=== PATIENT | male | born 1970 | race Caucasian/White ===

== ENCOUNTER 2021-12-22 11:10 | Emergency (ER) | payer BC, SELFPAY ==
[2021-12-22 11:17] VITALS: BP 131/98; PULSE 84; RESP 16; TEMP 37.1; O2SAT 98; BMI 31.1
[2021-12-22 12:24] VITALS: BP 0/0; PULSE 0; RESP 0; TEMP -17.7; TEMP 0
== END 2021-12-22 12:26 | disposition left against medical advice (07) ==
PROVIDERS: Emergency Provider Nurse Practitioner Family
DX: Z53.21 Procedure and treatment not carried out due to patient leaving prior to being seen by health care provider (principal)

== ENCOUNTER 2021-12-22 16:21 | Emergency (ER) | payer BC, SELFPAY ==
[2021-12-22 16:35] VITALS: BP 143/82; PULSE 83; RESP 14; TEMP 36.6; O2SAT 98; BMI 31.1
--- NOTE | 2021-12-22 16:57 | HMH.EDUTC ---
[facility] [place] Clinical Impression: Laceration of right leg excluding thigh Qualifiers: Encounter type: initial encounter Qualified Code(s): S81.811A - Laceration without foreign body, right lower leg, initial encounter Disposition: Home, Self-Care Condition on Discharge: Good Instructions: How to Care for a Laceration After Repair, DI for Laceration Repair -- Complex Suture Additional Instructions: Keep the wound clean and dry. Keep a dressing on it if she is going to be getting it dirty. Watch the for signs of infection, such as redness, swelling, drainage, fever. etc. Give tylenol or ibuprofen for pain. Follow up with her regular doctor. Return in 12 days to have the sutures removed. GO TO THE ER FOR ANY WORSENING SYMPTOMS OR CONCERNS. Take the antibiotics at directed. Prescriptions: cephALEXin [cephALEXin 500mg capsule] 500 mg PO Q6H 10 Days #40 cap Transmission Status: Received by [facility] #[id number] Referrals: Provider,Referral, [Primary Care Provider] - Time of Disposition: 19:45 Medical Decision Making - Medical Records Medical records reviewed: No: I reviewed the patient's medical records. - John Inquiry Pt receiving controlled substance: No Vital Signs: 12/22/21 16:35 12/22/21 19:50 Temperature 98 F 98 F Temperature Source Oral Pulse Rate 83 Pulse Rate [Left] 83 Respiratory Rate 14 14 Blood Pressure 143/82 H Blood Pressure [Right Arm] 143/82 H Blood Pressure Mean [Right Arm] 102 02 Sat by Pulse Oximetry 98 Orders (Tests/Meds): ED MEDICATIONS Discontinued Medications Generic Name Dose Route Start Last Admin Trade Name Nat PRN Reason Stop Dose Admin Lidocaine HCl 4 ml 12/22/21 19:49 12/22/21 19:50 Lidocaine 1% Pf 2ml Ampule SQ 12/22/21 19:50 4 ml ONCE ONE Administration [facility] [place] H[place] - General Stated complaint: O/A 3/ @1015 laceration to L thigh Time Seen by Provider: 12/22/21 16:57 Mode of Arrival: Ambulatory Source of Information: Patient Limitations: No Limitations Description of Symptoms (Recalled from Triage Doc. by RN): pt caught his L upper thigh in nona wire this am. pt has a lac close to 4in long that is bleeding minimally. pt was here earlier this am and LWBS. pt returned with steri strips all the way accross the lac. HEENT Symptoms (Recalled from RN notes): No Resp Symptoms (Recalled from RN notes): No Skin Symptoms (Recalled from RN notes): Yes MS Symptoms (Recalled from RN notes): No Functional Status (Recalled from RN notes): wnl - History of Present Illness Provider Complaint: He was chasing his dog when he ran in to a nona wire fence. He has a laceration on his left upper leg. His tetanus immunization is up to date. - Related Data Previous Rx's Medication Instructions Recorded Amoxicillin/Potassium Clav 500 mg PO TID #21 tab 12/24/19 [Augmentin 500mg tab] cephALEXin [cephALEXin 500mg 500 mg PO Q6H 10 Days #40 cap 12/22/21 capsule] Allergies Allergy/AdvReac Type Severity Reaction Status Date / Time No Known Allergies Allergy Verified 12/24/19 13:49 - Worker's Comp Is this a Worker's Comp case?: No [facility] History - Hepatitis A Screen Drug use history?: No High risk sexual behaviors?: No History of sexually transmitted infection?: No Currently employed?: No Childcare worker?: No Do you have indoor plumbing?: Yes Do you have electricity?: Yes Attestation statement:: This patient has been screened for Hepatitis A risk factors. I have reviewed the patient's past medical history: Yes Laterality Cases: Left: Arthroscopy Shoulder - Social History Alcohol Intake: current Occupational Status: other ROS Obtained: Yes All systems reviewed & no additional complaints - Constitutional Constitutional: Denies chills, Denies fever(s) - Integumentary/Breasts Skin/Breast: Reports as per HPI - Neurologic Neurologic: Denies tingling/numbness/burning sensations Physical Ex
[2021-12-22 19:50] VITALS: BP 143/82; PULSE 83; RESP 14; TEMP 36.6
== END 2021-12-22 19:51 | disposition home or self-care (01) ==
PROVIDERS: Emergency Provider Nurse Practitioner Family
DX: S81.811A Laceration without foreign body, right lower leg, initial encounter (principal); W26.8XXA Contact with other sharp object(s), not elsewhere classified, initial encounter; Y92.89 Other specified places as the place of occurrence of the external cause
CPT/HCPCS: 12002; 99213; G0463

== ENCOUNTER 2025-07-10 10:45 | Outpatient (CLI) | payer OTHER, SELFPAY ==
--- OUTSIDE RECORDS SUMMARY | 2023-08-16 11:00 | XMS_ITS | Continuity of Care Document ---
Author Organization [facility] o Address [address] [place] [address] Phone Care Team Providers Care Branch Account Manager Name Role Phone Robert Bello MD Unavailable Unavailable Medications Medication Instructions Dosage Effective Dates (start - stop) Status Comments Medrol (Ambrocio) 4 mg tablets in a dose pack take by Oral route take as directed as needed Not Available - Active Procedures Procedure Date X-ray exam of shoulder, complete 2022 Njx interlaminar lmbr/sac Methylprednisolone 40 MG inj MRI Lumbar Spine wo Contrast DESTROY LUMB/SAC FACET JNT DESTROY L/S FACET JNT ADDL Methylprednisolone 40 MG inj Office/outpatient visit,est, mod 2016 DESTROY LUMB/SAC FACET JNT DESTROY L/S FACET JNT ADDL Methylprednisolone 40 MG inj Office consultation, moderate-high INJ PARAVERT F JNT L/S 1 LEV INJ PARAVERT F JNT L/S 2 LEV INJ PARAVERT F JNT L/S 3 LEV Methylprednisolone 40 MG inj Office consultation, moderate 4 X-ray exam lwr spine, min 4 views Advance Directives Directive Yes / No Effective Date File Name No Information Encounters Encounter Description Practice Location Reason(s) For Visit Diagnoses Date Provider Providers Copied on Encounter [facility] [place], [place], [facility], [place] tel:[phone] [facility] No Information 5- 3 Ace Jones. [address], [place], [place], [id number], . tel:[phone] Referring Provider: Robert Gusman, [address], [place], [address]. tel:[phone] [facility] [place], [facility] [place], [place], [facility], [place] tel:[phone] [facility] No Information Jan-2 8-201 7 Maricarmen Hernández. [address] [place], [place], [id number], [place]. tel:[phone] [facility] [address], [facility], [place] tel:[phone] [facility] No Information Jan-0 3-201 7 Maricarmen Hernández. [address] [place], [place], [id number], [place]. tel:[phone] Referring Provider: Edgar Hernadez, [address] [place], [address]. tel:[phone] [facility] [address], [facility], [place] tel:[phone] [facility] No Information Dec-2 4-201 7 Maricarmen Hernández. [address] [place], [place], [id number], [place]. tel:[phone] Office/outpa tient visit,est, mod [facility] [address], [facility], [place] tel:[phone] [facility] No Information Dec-1 7-201 7 Maricarmen Hernández. [address] [place], [id number], [place]. tel:[phone] [facility] [address] [place], [address], tel:[phone] [facility] Lumbosacral spondylosis 0201 4 Maricarmen Hernández. [address] [place], [place], [id number], . tel:[phone] Office consultation , moderate-hig h [facility] [place], [facility] [place], [place], [facility], tel:[phone] [facility] No Information 4 Maricarmen Hernández. [address] [place], [place], [id number], [place]. tel:[phone] Referring Provider: Kenrick Rivas, [address] [place] [address], [address]. tel:[phone] Office consultation , moderate [facility] [place], [address] [place] [address], [facility], tel:[phone] [facility] No Information 4 Júnior Choudhary. [address] [place] [address], [id number], [place]. tel:[phone] Referring Provider: Kvng Butt, [address] [place] [address], [place], [address]. tel:[phone] Family History Family Member Type Diagnosis Age At Onset No Information Payers Payer name Insurance type Covered republican ID Gerri lyle(s) [place] - [id number] Social History Type Description Quantity Date Captured Comments Sex Male Smoking Status No Information Chief Complaint And Reason For Visit No Information Reason For Referral Reason For Referral No Information Plan Of Treatment Date Type Action Status Future Order: Radiology Order MR I Lumbar Spine WO Contrast ([id number]), Sent on: Sent History Of Present Illness Encounter Date Complaint History Of Prese nt Illness No Information Functional Status Date Functional Assessmen t No Information Instructions Date Instruction Additional Infor mation No Information Assessments Type Assessment Date No Information Patient Care Teams Name Effective Dates (start - stop) Status Members No Information
[2025-07-10 16:13] LABS: Albumin Level 4.5 g/dl (3.5-5.0); Chloride 103 mmol/L (98-107); Potassium 4.1 mmoL/L (3.5-5.1); Sodium 138 mmol/L (136-145)
[2025-07-10 16:15] LABS: Blood Urea Nitrogen 9 mg/dl (9-20); Creatinine,Serum 0.70 mg/dl (0.66-1.25); Estimated Glomerular Filt Rate 116 ml/min (>60); GFR (African American) 141 ML/MIN (>60)
[2025-07-10 16:16] LABS: Alanine Aminotransferase 23 U/L (12-78); Albumin/Globulin Ratio 1.8 (1.1-1.8); Alkaline Phosphatase 78 U/L (38-126); Anion Gap 14.1 mEq/L (5-15); Aspartate Amino Transferase 29 U/L (17-59); Bilirubin,Total 0.6 mg/dl (0.2-1.3); Calcium 9.6 mg/dl (8.4-10.2); Carbon Dioxide 25 mmol/L (22.0-30.0); Globulin 2.5 g/dL (1.3-3.2); Glucose 95 mg/dl (74-100); Total Protein,Serum 7.0 g/dl (6.3-8.2)
--- OUTSIDE RECORDS SUMMARY | 2025-07-11 12:25 | XMS_ITS | Encounter Summary ---
Author Organization [place] [address] Care Team Providers Care Railway Switchman Name Role Phone Vijaya Coker MD Primary Care Provider [phone],LD Unavailable Unavailabl e Yesy Franco LPN Unavailable Unav ailable Cassandra Grimes RD,LD Unavailable Unavailabl e Encounter Details Date Type Department Care Team (Late st Contact Info) Description 07/09/2019 Lab Requisition [facility] [place] [address] Isaura Mckinney MD [address] [place] [address] DR OTERO [address] [place] [phone] Disruption of external operation (surgical) wound, not elsewhere classified, initial encounter Social History Tobacco Use Types Packs/Day Years Used Date Smoking Tobacco: Former Cigarettes 1.5 20 1 10/28/1986 - 08/28/2007 Smokeless Tobacco: Former Chew Comments:quit 09/23/2018 Alcohol Use Standard Drinks/Week Comments Yes 6 (1 standard drink = 0.6 oz pur e alcohol) per week PHQ-2 Answer Date Recorded PHQ-2 Score 0 03/15/2019 Sexually Active Control Partners Comments Yes Sex and Gender Information Value Date Recorded Sex Assigned at Not on file Legal Sex Male 5:23 PM EDT Gender Identity Not on file Sexual Orientation Not on file 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 Answer Date of Assessment Author No 08/28/2017 4:51 PM Kaylan Pedraza CCMA * Is the person blind or does he/she have serious difficulty seeing even when wearing glasses? Answer Date of Assessment Author No 08/28/2017 4:51 PM Kaylan Pedraza CCMA * Does this person have serious difficulty walking or climbing stairs? Answer Date of Assessment Author No 08/28/2017 4:51 PM Kaylan Pedraza CCMA * Does this person have difficulty dressing or bathing? Answer Date of Assessment Author No 08/28/2017 4:51 PM Kaylan Pedraza CCMA * Because of a physical, mental or emotional condition, does this person have difficulty doing errands alone such as visiting a doctor's office or shopping? Answer Date of Assessment Author No 08/28/2017 4:51 PM Kaylan Pedraza CCMA documented as of this encounter Mental Status * Because of a physical, mental or emotional condition, does this person have serious difficulty concentrating, remembering or making decisions? Answer Entry Date Author No 08/28/2017 4:51 PM Kaylan Pedraza CCMA documented in this encounter Plan of Treatment Upcoming Encounters Date Type Department Care Team (Late st Contact Info) Description 09/23/2026 10:00 AM EST Office Visit [facility] [address] [phone] Kaylan Degroot APRN [address] [address] documented as of this encounter Goals Goal Patient Goal Type Associated Problems Recent Progress Patient-Stated? Author Blood Pressure < 140/90 Blood Pressure 120/80(2024 9:20 AM EST) No Vijaya Coker MD Maintain a healthy diet, exercise regularly and maintain an ideal body weight General No Marilu Nava CCMA Stay Tobacco Free Lifestyle No Marilu Nava CCMA documented as of this encounter Procedures Procedure Name Priority Date/Time Associated Diagnosis Comments SEDIMENTATION RATE AUTOMATED Routine 07/09/2019 11:00 AM EDT Disruption of external operation (surgical) wound, not elsewhere classified, initial encounter CBC WITH DIFF Routine 07/09/2019 11:00 AM EDT Disruption of external operation (surgical) wound, not elsewhere classified, initial encounter C-REACTIVE PROTEIN Routine 07/09/2019 11 :00 AM EDT Disruption of external operation (surgical) wound, not elsewhere classified, initial encounter documented in this encounter Results * (ABNORMAL) C-REACTIVE PROTEIN (07/09/2019 11:00 AM EDT) CRP 6.01(H) <=5.00 mg/L 07/09/2019 6:06 PM EDT [employer] Blood VENOUS BLOOD / Unknown 07/09/2019 11:00 AM EDT 07/09/2019 4:06 PM EDT Isaura Mckinney MD CHEMISTRY ORDERABLES Fin al Result Performing Organization Address [facility] Co de Phone Number [employer] [address] [place] [address] , [place] [address] * (ABNORMAL) SEDIMENTATION RATE AUTOMATED (07/09/2019 11:00 AM EDT) Sed Rate 30(H) 0 - 20 mm/hr 07/09/2019 5:23 PM EDT [employer] Blood VENOUS BLOOD / Unknown 07/09/2019 11:00 AM EDT 07/09/2019 5:00 PM EDT Isaura Mckinney MD HEMATOLOGY ORDERABLES Fi nal Result Performing Organization Address [facility]/ZIP Co de Phone Number [id number] [address] , [place] [address] * (ABNORMAL) CBC WITH DIFF (07/09/2019 11:00 AM EDT) [facility] WBC 8.1 3.7 - 10.3 x10(3)/mcL 07/09/2019 5:11 PM EDT [facility] RBC 5.38 4.60 - 6.10 x10(6)/mcL 07/09/2019 5:11 PM EDT [facility] Hgb 14.9 13.7 - 17.5 g/dL 07/09/2019 5:11 PM EDT [facility] Hct 47.4 40.0 - 51.0 % 07/09/2019 5:11 PM EDT [facility] MCV 88.1 80.0 - 100.0 fL 07/09/2019 5:11 PM EDT [facility] MCH 27.7 26.0 - 34.0 pg 07/09/2019 5:11 PM EDT [facility] MCHC 31.4 30.7 - 35.5 g/dL 07/09/2019 5:11 PM EDT [facility] RDW 12.4 <=14.9 % 07/09/2019 5:11 PM EDT [facility] Platelet 310 155 - 369 x10(3)/[facility] 07/09/2019 5:11 PM EDT [facility] MPV 10.0 8.8 - 12.5 fL 07/09/2019 5:11 PM EDT [facility] Neut Percent 76.8 % 07/09/2019 5:11 PM EDT [facility] Comment:Neutrophils equals s egs plus bands Imm Gran% 0.6 % 07/09/2019 5:11 PM EDT [facility] Comment:Automated count of m etamyelocytes, myelocytes and promyelocytes. Lymph Percent 13.4 % 07/09/2019 5:11 PM EDT [facility] [place] Percent 6.9 % 07/09/2019 5:11 PM EDT [facility] Eos Percent 1.8 % 07/09/2019 5:11 PM EDT [facility] Baso Percent 0.5 % 07/09/2019 5:11 PM EDT [facility] Neut # 6.3(H) 1.6 - 6.1 x10(3)/mcL 07/09/2019 5:11 PM EDT [facility] Comment:Neutrophils equals s egs plus bands IMMGRAN# 0.1 0.0 - 0.1 x10(3)/[facility] 07/09/2019 5:11 PM EDT [facility] [employer] [facility] Comment:Automated count of m etamyelocytes, myelocytes and promyelocytes. An absolute IG <0.1 is reported as 0.0. Lymph # 1.1(L) 1.2 - 3.9 x10(3)/[facility] 07/09/2019 5:11 PM EDT [facility] [employer], [facility] [place]morton # 0.6 0.3 - 0.9 x10(3)/[facility] 07/09/2019 5:11 PM EDT [facility] [employer], [facility] Eos# 0.2 0.0 - 0.5 x10(3)/[facility] 07/09/2019 5:11 PM EDT [facility] [employer], [facility] Baso # 0.0 0.0 - 0.1 x10(3)/[facility] 07/09/2019 5:11 PM EDT [facility] [employer] [facility] Blood VENOUS BLOOD / Unknown 07/09/2019 11:00 AM EDT 07/09/2019 5:00 PM EDT us Isaura Mckinney MD HEMATOLOGY ORDERABLES Fi nal Result [facility] [employer] [address], [place] [address] documented in this encounter Visit Diagnoses Diagnosis Disruption of external operation (surgical) wound, not elsewhere classified, initial encounter documented in this encounter Care Teams Railway Switchman Relationship Specialty Start Date End Date Vijaya Coker MD [address] [place] [phone] PCP - General Family Medicine 04/28/17 07/09/[address],PARUL Dietitian 08/25/20 08/26/20 Yesy Franco LPN Business Education Professor Licensed Practical Nurse 11/25/20 08/23/[address], LD Dietitian 11/25/20 11/25/20 documented as of this encounter
--- OUTSIDE RECORDS SUMMARY | 2025-07-11 12:25 | XMS_ITS | Encounter Summary ---
Author Organization [place] [address] Care Team Providers Care Computing Consultant Name Role Phone Unavailable Primary Care Provider Unavailabl e Reason for Visit * Reason Onset Date Comments Other 07/10/2025 NABEEL Encounter Details Date Type Department Care Team (Late st Contact Info) Description 07/10/2025 Telephone [facility] [address] [place] [address] Vijaya Coker MD [address] [place] [address] Other (NABEEL) Social History Tobacco Use Types Packs/Day Years Used Date Smoking Tobacco: Former Cigarettes 1.5 24.8 0 10/23/1984 - 08/05/2009 Smokeless Tobacco: Former Chew Comments:quit 09/23/2018 Smoking history updated per audit trail QT 10/28/2024 [place] Alcohol Use Standard Drinks/Week Comments Yes 6 (1 standard drink = 0.6 oz pur e alcohol) per week Overall Financial Resource Strain (CARDIA) Answe r Date Recorded How hard is it for you to pa y for the very basics like food, housing, medical care, and heating? Not very hard 11/25/2020 PHQ-2 Answer Date Recorded PHQ-2 Total Score 0 06/18/2024 [facility] [place] [facility] Occupat ional [facility] - Occupational Stress Questionnaire Answer Date Recorded Do you feel stress - tense, restless, nervous, or anxious, or unable to sleep at night because your mind is troubled all the time - these days? Not at all 11/25/2020 Exercise Vital Sign Answer Date Recorde d On average, how many days pe r week do you engage in moderate to strenuous exercise (like a brisk walk)? 7 days 11/25/2020 On average, how many minutes do you engage in exercise at this level? 90 min 11/25/2020 Hunger Vital Sign Answer Date Recorded Within the past 12 months, y ou worried that your food would run out before you got the money to buy more. Never true 11/25/19 21 Within the past 12 months, t he food you bought just didn't last and you didn't have money to get more. Never true 11/25/2020 PRAPARE - Transportation Answer Date Re corded In the past 12 months, has l ack of transportation kept you from medical appointments or from getting medications? No 12/2020 In the past 12 months, has l ack of transportation kept you from meetings, work, or from getting things needed for daily living? 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 Answer Date of Assessment Author No 06/18/2024 8:23 AM Uzma Odom LPN * Is the person blind or does he/she have serious difficulty seeing even when wearing glasses? Answer Date of Assessment Author No 06/18/2024 8:23 AM Uzma Odom LPN * Does this person have serious difficulty walking or climbing stairs? Answer Date of Assessment Author No 06/18/2024 8:23 AM Uzma Odom LPN * Does this person have difficulty dressing or bathing? Answer Date of Assessment Author No 06/18/2024 8:23 AM Uzma Odom LPN * Because of a physical, mental or emotional condition, does this person have difficulty doing errands alone such as visiting a doctor's office or shopping? Answer Date of Assessment Author No 06/18/2024 8:23 AM EDT Uzma Das LPN documented as of this encounter Mental Status * Because of a physical, mental or emotional condition, does this person have serious difficulty concentrating, remembering or making decisions? Answer Entry Date Author No 06/18/2024 8:23 AM EDT Uzma Das LPN documented in this encounter Miscellaneous Notes * Telephone Encounter - Lori Oro - 07/10/2025 2:08 PM EDT Faxed [facility]EEL from [facility] to medical records documented in this encounter Plan of Treatment Upcoming Encounters Date Type Department Care Team (Late st Contact Info) Description 09/23/2026 10:00 AM EST Office Visit [facility] Sleep Medicine [facility] [address] [phone] Kaylan Degroot, KEVIN [address] [address] documented as of this encounter Goals Goal Patient Goal Type Associated Problems Recent Progress Patient-Stated? Author Blood Pressure < 140/90 Blood Pressure 120/80(2024 9:20 AM EST) No Vijaya Coker MD Maintain a healthy diet, exercise regularly and maintain an ideal body weight General No Marilu Nava CCMA Stay Tobacco Free Lifestyle No Marilu Nava CCMA documented as of this encounter Visit Diagnoses Not on filedocumented in this encounter
--- OUTSIDE RECORDS SUMMARY | 2025-07-11 12:25 | XMS_ITS | Encounter Summary ---
Author Organization [place] [address] Care Team Providers Care Film Color Tester Name Role Phone Vijaya Coker MD Primary Care Provider [phone],LD Unavailable Unavailabl e Yesy Franco LPN Unavailable Unav ailable Cassandra Grimes RD, LD Unavailable Unavailabl e Encounter Details Date Type Department Care Team (Late st Contact Info) Description 10/05/2018 Orders Only SEP Gastro [facility] [address] 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 Answer Date of Assessment Author No 08/28/2017 4:51 PM Nidhi Pedrazajames Cedeno REBECA * Is the person blind or does he/she have serious difficulty seeing even when wearing glasses? Answer Date of Assessment Author No 08/28/2017 4:51 PM BENJAMIN SandersroxNidhiKaylanjames Cedeno REBECA * Does this person have serious difficulty walking or climbing stairs? Answer Date of Assessment Author No 08/28/2017 4:51 PM BENJAMIN TommyroxNidhiKaylanjames Cedeno REBECA * Does this person have difficulty dressing or bathing? Answer Date of Assessment Author No 08/28/2017 4:51 PM BENJAMIN HernandeztuanNidhiKaylanjames Cedeno REBECA * Because of a physical, mental or emotional condition, does this person have difficulty doing errands alone such as visiting a doctor's office or shopping? Answer Date of Assessment Author No 08/28/2017 4:51 PM BENJAMIN HernandeztuanNidhiKaylanjames Cedeno REBECA documented as of this encounter Mental Status * Because of a physical, mental or emotional condition, does this person have serious difficulty concentrating, remembering or making decisions? Answer Entry Date Author No 08/28/2017 4:51 PM BENJAMIN HernandeztuanNidhiKaylanjames Cedeno REBECA documented in this encounter Plan of Treatment Upcoming Encounters Date Type Department Care Team (Late st Contact Info) Description 09/23/2026 10:00 AM EST Office Visit SEP Sleep Medicine [facility] [address] [phone] Kaylan Degroot APRN [address] [address] documented as of this encounter Goals Goal [...] Procedure Name Priority Date/Time Associated Diagnosis Comments GMED COLONOSCOPY Routine 10/05/2018 12:0 0 PM EST documented in this encounter Results * GMED COLONOSCOPY (10/05/2018 12:00 PM EST) 10/05/2018 12:0 0 PM EST Impressions [facility] - 10/05/2018 1:25 PM EST Polyps (12 mm) in the transverse colon. (Polypectomy, Polypectomy). Polyp (10 mm) in the ascending colon. (Polypectomy). Plan: Follow up pathology results. Colonoscopy in 3 years. This section is an excerpt of the full report. us Cindi Henley MD GI PROCEDURE ORDERABLES Final Result [facility] [address] [place] [address] documented in this encounter Visit Diagnoses Not on filedocumented in this encounter Care Teams Film Color Tester Relationship Specialty Start Date End Date Vijaya Coker MD [address] [place] [phone] PCP - General Family Medicine 04/28/17 07/09/[address], LD Dietitian 08/25/20 08/26/20 Yesy Franco LPN Line Decorator Licensed Practical Nurse 11/25/20 08/23/[address], LD Dietitian 11/25/20 11/25/20 documented as of this encounter
--- OUTSIDE RECORDS SUMMARY | 2025-07-11 12:25 | XMS_ITS | Encounter Summary ---
Author Organization [place] [address] Care Team Providers Care Academic Support Assistant Name Role Phone Vijaya Coker MD Primary Care Provider [phone],LD Unavailable Unavailabl e Yesy Franco LPN Unavailable Unav ailable Cassandra Grimes RD,LD Unavailable Unavailabl e Encounter Details Date Type Department Care Team (Late st Contact Info) Description 07/01/2019 Lab Requisition [facility] 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 Not on file Not [...] AM EST Office Visit SEP Sleep Medicine [facility] [address] [phone] Kaylan Degroot APRN [address] [address] documented as of this encounter Goals Goal [...] Associated Diagnosis Comments SEDIMENTATION RATE AUTOMATED Routine 07/01/2019 11:00 AM EDT Disruption of external operation (surgical) wound, not elsewhere classified, initial encounter CBC WITH DIFF Routine 07/01/2019 11:00 AM EDT Disruption of external operation (surgical) wound, not elsewhere classified, initial encounter C-REACTIVE PROTEIN Routine 07/01/2019 11 :00 AM EDT Disruption of external operation (surgical) wound, not elsewhere classified, initial encounter COMPREHENSIVE METABOLIC PANEL Routine 07/01/2019 11:00 AM EDT Disruption of external operation (surgical) wound, not elsewhere classified, initial encounter documented in this encounter Results * (ABNORMAL) C-REACTIVE PROTEIN (07/01/2019 11:00 AM EDT) CRP 6.36(H) <=5.00 mg/L 07/01/2019 7:24 PM EDT [email or web address] Blood VENOUS BLOOD / Unknown 07/01/2019 11:00 AM EDT 07/01/2019 4:02 PM EDT us Isaura Mckinney MD CHEMISTRY ORDERABLES Fin al Result [facility] 1 [facility] , [place] [address] * (ABNORMAL) COMPREHENSIVE METABOLIC PANEL (07/01/2019 11:00 AM EDT) Sodium 138 136 - 145 mmol/L 07/01/2019 7:31 PM EDT [facility] Potassium 4.2 3.5 - 5.0 mmol/L 07/01/2019 7:31 PM EDT [facility] Chloride 100 98 - 107 mmol/L 07/01/2019 7:31 PM EDT [facility] Total CO2 21(L) 22 - 29 mmol/L 07/01/2019 7:31 PM EDT [facility] Anion Gap 17(H) 7 - 16 mmol/L 07/01/2019 7:31 PM EDT [facility] Calcium 9.5 8.6 - 10.4 mg/dL 07/01/2019 7:31 PM EDT [facility] Glucose Lvl 103(H) 74 - 100 mg/dL 07/01/2019 7:31 PM EDT [facility] BUN 9 6 - 20 mg/dL 07/01/2019 7:31 PM EDT [facility] Creatinine 0.91 0.67 - 1.30 mg/dL 07/01/2019 7:31 PM EDT [facility] Albumin 4.3 3.5 - 5.2 gm/dL 07/01/2019 7:31 PM EDT [facility] Total Protein 6.5 6.4 - 8.3 gm/dL 07/01/2019 7:31 PM EDT [facility] Bili Total 0.4 0.1 - 1.4 mg/dL 07/01/2019 7:31 PM EDT [facility] ALT 40 <=41 IU/L 07/01/2019 7:31 PM EDT [facility] AST 26 <=40 IU/L 07/01/2019 7:31 PM EDT [facility] Alk Phos 104 40 - 129 IU/L 07/01/2019 7:31 PM EDT [facility] GFR Afr Am 112 >=60 mL/min/1.7 3 m2 07/01/2019 7:31 PM EDT [facility] GFR Non Afr Am 97 >=60 mL/min/1.7 3 m2 07/01/2019 7:31 PM T [facility] Comment: This estimated GFR was calculated using CKD-EPI equation which is modified based on ethnicity for Non Americans and Americans. Both results are reported since it is not always possible to determine the patient's ethnicity. This equation should only be used for individuals 18 and older. It has not been validated for use with the elderly (>70 years), women, or in some racial or ethnic subgroups, such as Hispanics. The equation will be less accurate in people with differences in nutritional status or muscle mass. Blood VENOUS BLOOD / Unknown 07/01/2019 11:00 AM EDT 07/01/2019 4:02 PM EDT Isaura Mckinney MD CHEMISTRY ORDERABLES Fin al Result Performing Organization Address City/[facility]/ZIP Co de Phone Number [facility] 1 [facility], [address] [place] [id number] [facility] [address] [place] [address] * (ABNORMAL) SEDIMENTATION RATE AUTOMATED (07/01/2019 11:00 AM EDT) Pathologist [facility] Sed Rate 25(H) 0 - 20 mm/hr 07/01/2019 5:31 PM EDT [facility] Blood VENOUS BLOOD / Unknown 07/01/2019 11:00 AM EDT 07/01/2019 4:02 PM EDT us Isaura Mckinney MD HEMATOLOGY ORDERABLES Fi nal Result Performing Organization Address [facility]/ZIP Co de Phone Number [facility] [address] [place] [address] * (ABNORMAL) CBC WITH DIFF (07/01/2019 11:00 AM EDT) [facility] WBC 8.4 3.7 - 10.3 x10(3)/mcL 07/01/2019 4:54 PM EDT [facility] RBC 5.19 4.60 - 6.10 x10(6)/mcL 07/01/2019 4:54 PM EDT [facility] Hgb 14.9 13.7 - 17.5 g/dL 07/01/2019 4:54 PM EDT [facility] Hct 45.7 40.0 - 51.0 % 07/01/2019 4:54 PM EDT [facility] MCV 88.1 80.0 - 100.0 fL 07/01/2019 4:54 PM EDT [facility] MCH 28.7 26.0 - 34.0 pg 07/01/2019 4:54 PM EDT [facility] MCHC 32.6 30.7 - 35.5 g/dL 07/01/2019 4:54 PM EDT [facility] RDW 12.0 <=14.9 % 07/01/2019 4:54 PM EDT [facility] Platelet 331 155 - 369 x10(3)/[facility] 07/01/2019 4:54 PM EDT [facility] MPV 10.0 8.8 - 12.5 fL 07/01/2019 4:54 PM EDT [facility] Neut Percent 75.9 % 07/01/2019 4:54 PM EDT [facility] Comment:Neutrophils equals s egs plus bands Imm Gran% 0.5 % 07/01/2019 4:54 PM EDT [facility] Comment:Automated count of m etamyelocytes, myelocytes and promyelocytes. Lymph Percent 13.2 % 07/01/2019 4:54 PM EDT [facility] Fallon Percent 7.5 % 07/01/2019 4:54 PM EDT [facility] Eos Percent 2.3 % 07/01/2019 4:54 PM EDT [facility] Baso Percent 0.6 % 07/01/2019 4:54 PM EDT [facility] Neut # 6.4(H) 1.6 - 6.1 x10(3)/[facility] 07/01/2019 4:54 PM EDT [facility] Comment:Neutrophils equals s egs plus bands IMMGRAN# 0.0 0.0 - 0.1 x10(3)/mcL 07/01/2019 4:54 PM EDT [facility] Comment:Automated count of m etamyelocytes, myelocytes and promyelocytes. An absolute IG <0.1 is reported as 0.0. Lymph # 1.1(L) 1.2 - 3.9 x10(3)/mcL 07/01/2019 4:54 PM EDT [facility] Fallon # 0.6 0.3 - 0.9 x10(3)/[facility] 07/01/2019 4:54 PM EDT [facility] Eos# 0.2 0.0 - 0.5 x10(3)/[facility] 07/01/2019 4:54 PM EDT [facility] Baso # 0.1 0.0 - 0.1 x10(3)/[facility] 07/01/2019 4:54 PM EDT [facility] Blood VENOUS BLOOD / Unknown 07/01/2019 11:00 AM EDT 07/01/2019 4:02 PM EDT us Isaura Mckinney MD HEMATOLOGY ORDERABLES Fi nal Result [facility] [employer] 1 [facility] , [place] [address] documented in this encounter Visit Diagnoses Diagnosis Disruption of external operation (surgical) wound, not elsewhere classified, initial encounter documented in this encounter Care Teams Academic Support Assistant Relationship Specialty Start Date End Date Vijaya Coker MD [address] [place] [phone] PCP - General Family Medicine 04/28/17 07/09/[address],PARUL Dietitian 08/25/20 08/26/20 Yesy Franco LPN Packager Or Packer And Weigher Licensed Practical Nurse 11/25/20 08/23/[address],PARUL Dietitian 11/25/20 11/25/20 documented as of this encounter
--- OUTSIDE RECORDS SUMMARY | 2025-07-11 12:25 | XMS_ITS | Encounter Summary ---
Author Organization [place] [address] Care Team Providers Care Android Programmer Name Role Phone Vijaya Coker MD Primary Care Provider [phone],LD Unavailable Unavailabl e Yesy Franco LPN Unavailable Unav ailable Cassandra Grimes RD,LD Unavailable Unavailabl e Encounter Details Date Type Department Care Team (Latest Contact Info) Description 07/23/2019 Lab Requisition [facility] 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 on file [...] AM EST Office Visit SEP Sleep Medicine [facility] [address] [phone] Kaylan Degroot APRN [address] [address] documented as of this encounter Goals Goal [...] Associated Diagnosis Comments SEDIMENTATION RATE AUTOMATED Routine 07/23/2019 11:00 AM EDT CBC WITH DIFF Routine 07/23/2019 11:00 AM EDT C-REACTIVE PROTEIN Routine 07/23/2019 11 :00 AM EDT Staphylococcal arthritis, left shoulder (HCC) COMPREHENSIVE METABOLIC PANEL Routine 07/23/2019 11:00 AM EDT Staphylococcal arthritis, left shoulder (HCC) documented in this encounter Results * (ABNORMAL) C-REACTIVE PROTEIN (07/23/2019 11:00 AM EDT) CRP 5.57(H) <=5.00 mg/L 07/23/2019 5:45 PM EDT [facility] Blood VENOUS BLOOD / Unknown 07/23/2019 11:00 AM EDT 07/23/2019 4:04 PM EDT us Isaura Mckinney MD CHEMISTRY ORDERABLES Fin al Result [facility] 1 [facility] , [place] [address] * (ABNORMAL) COMPREHENSIVE METABOLIC PANEL (07/23/2019 11:00 AM EDT) Sodium 142 136 - 145 mmol/L 07/23/2019 5:45 PM EDT [facility] Potassium 3.8 3.5 - 5.0 mmol/L 07/23/2019 5:45 PM EDT [facility] Chloride 103 98 - 107 mmol/L 07/23/2019 5:45 PM EDT [facility] Total CO2 24 22 - 29 mmol/L 07/23/2019 5:45 PM EDT [facility] Anion Gap 15 7 - 16 mmol/L 07/23/2019 5:45 PM EDT [facility] Calcium 9.4 8.6 - 10.4 mg/dL 07/23/2019 5:45 PM EDT [facility] Glucose Lvl 150(H) 74 - 100 mg/dL 07/23/2019 5:45 PM EDT [facility] BUN 10 6 - 20 mg/dL 07/23/2019 5:45 PM EDT [facility] Creatinine 0.88 0.67 - 1.30 mg/dL 07/23/2019 5:45 PM EDT [facility] Albumin 4.4 3.5 - 5.2 gm/dL 07/23/2019 5:45 PM EDT [facility] Total Protein 6.8 6.4 - 8.3 gm/dL 07/23/2019 5:45 PM EDT [facility] Bili Total 0.3 0.1 - 1.4 mg/dL 07/23/2019 5:45 PM EDT [facility] ALT 13 <=41 IU/L 07/23/2019 5:45 PM EDT [facility] AST 22 <=40 IU/L 07/23/2019 5:45 PM EDT [facility] Alk Phos 103 40 - 129 IU/L 07/23/2019 5:45 PM EDT [facility], [facility] GFR Afr Am 115 >=60 mL/min/1.7 3 m2 07/23/2019 5:45 PM EDT [facility] GFR Non Afr Am 99 >=60 mL/min/1.7 3 m2 07/23/2019 5:45 PM EDT [facility] Comment: This estimated GFR was [...] muscle mass. Blood VENOUS BLOOD / Unknown 07/23/2019 11:00 AM EDT 07/23/2019 4:04 PM EDT us Isaura Mckinney MD CHEMISTRY ORDERABLES Fin al Result [facility] [address] [place] [address] , [address] [place], [place] [id number] [facility] [address] [place] [address] * (ABNORMAL) SEDIMENTATION RATE AUTOMATED (07/23/2019 11:00 AM EDT) [facility] Sed Rate 27(H) 0 - 20 mm/hr 07/23/2019 5:13 PM EDT [facility] Blood VENOUS BLOOD / Unknown 07/23/2019 11:00 AM EDT 07/23/2019 4:04 PM EDT us Isaura Mckinney MD HEMATOLOGY ORDERABLES Fi nal Result [facility] [address] , [place] [address] * (ABNORMAL) CBC WITH DIFF (07/23/2019 11:00 AM EDT) [facility] WBC 6.7 3.7 - 10.3 x10(3)/mcL 07/23/2019 4:41 PM EDT [facility] RBC 5.34 4.60 - 6.10 x10(6)/mcL 07/23/2019 4:41 PM EDT [facility] Hgb 15.0 13.7 - 17.5 g/dL 07/23/2019 4:41 PM EDT [facility] Hct 46.7 40.0 - 51.0 % 07/23/2019 4:41 PM EDT [facility] MCV 87.5 80.0 - 100.0 fL 07/23/2019 4:41 PM EDT [facility] MCH 28.1 26.0 - 34.0 pg 07/23/2019 4:41 PM EDT [facility] MCHC 32.1 30.7 - 35.5 g/dL 07/23/2019 4:41 PM EDT [facility] RDW 12.3 <=14.9 % 07/23/2019 4:41 PM EDT [facility] Platelet 315 155 - 369 x10(3)/mcL 07/23/2019 4:41 PM EDT [facility] MPV 10.0 8.8 - 12.5 fL 07/23/2019 4:41 PM EDT [facility] Neut Percent 76.9 % 07/23/2019 4:41 PM EDT [facility] Comment:Neutrophils equals s egs plus bands Imm Gran% 0.5 % 07/23/2019 4:41 PM EDT [facility] Comment:Automated count of m etamyelocytes, myelocytes and promyelocytes. Lymph Percent 15.2 % 07/23/2019 4:41 PM EDT [facility] Rankin Percent 5.1 % 07/23/2019 4:41 PM EDT [facility] Eos Percent 2.0 % 07/23/2019 4:41 PM EDT [facility] Baso Percent 0.3 % 07/23/2019 4:41 PM EDT [facility] Neut # 5.1 1.6 - 6.1 x10(3)/mcL 07/23/2019 4:41 PM EDT [facility] Comment:Neutrophils equals s egs plus bands IMMGRAN# 0.0 0.0 - 0.1 x10(3)/mcL 07/23/2019 4:41 PM EDT [facility] Comment:Automated count of m etamyelocytes, myelocytes and promyelocytes. An absolute IG <0.1 is reported as 0.0. Lymph # 1.0(L) 1.2 - 3.9 x10(3)/mcL 07/23/2019 4:41 PM EDT [facility] Rankin # 0.3 0.3 - 0.9 x10(3)/mcL 07/23/2019 4:41 PM EDT [facility] Eos# 0.1 0.0 - 0.5 x10(3)/mcL 07/23/2019 4:41 PM EDT [facility] Baso # 0.0 0.0 - 0.1 x10(3)/mcL 07/23/2019 4:41 PM EDT [facility] Blood VENOUS BLOOD / Unknown 07/23/2019 11:00 AM EDT 07/23/2019 4:04 PM EDT us Iasura Savani-Blackham MD HEMATOLOGY ORDERABLES Fi nal Result [facility] 1 [facility] , [place] [address] documented in this encounter Visit Diagnoses Diagnosis Staphylococcal arthritis, left shoulder (HCC) documented in this encounter Care Teams Android Programmer Relationship Specialty Start Date End Date Vijaya Coker MD [address] [place] [phone] PCP - General Family Medicine 04/28/17 07/09/[address],PARUL Dietitian 08/25/20 08/26/20 Yesy Franco LPN Header Operator Licensed Practical Nurse 11/25/20 08/23/[address],PARUL Dietitian 11/25/20 11/25/20 documented as of this encounter
--- OUTSIDE RECORDS SUMMARY | 2025-07-11 12:25 | XMS_ITS | Encounter Summary ---
Author Organization [place] [address] Care Team Providers Care Embedded Case Manager Name Role Phone Vijaya Coker MD Primary Care Provider [phone],LD Unavailable Unavailabl e Yesy Franco LPN Unavailable Unav ailable Cassandra Grimes RD,LD Unavailable Unavailabl e Encounter Details Date Type Department Care Team (Late st Contact Info) Description 07/30/2019 Lab Requisition [facility] 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 on file Not [...] AM EST Office Visit [facility] Sleep Medicine [facility] [address] [phone] Kaylan Degroot APRN [address] [address] documented as of this encounter Goals Goal [...] Associated Diagnosis Comments SEDIMENTATION RATE AUTOMATED Routine 07/30/2019 1:02 PM EDT Disruption of external operation (surgical) wound, not elsewhere classified, initial encounter CBC WITH DIFF Routine 07/30/2019 1:02 PM EDT Disruption of external operation (surgical) wound, not elsewhere classified, initial encounter COMPREHENSIVE METABOLIC PANEL Routine 07/30/2019 1:02 PM EDT Disruption of external operation (surgical) wound, not elsewhere classified, initial encounter documented in this encounter Results * (ABNORMAL) COMPREHENSIVE METABOLIC PANEL (07/30/2019 1:02 PM EDT) Sodium 140 136 - 145 mmol/L 07/30/2019 5:08 PM EDT [facility] Potassium 3.9 3.5 - 5.0 mmol/L 07/30/2019 5:08 PM EDT [facility] Chloride 103 98 - 107 mmol/L 07/30/2019 5:08 PM EDT [facility] Total CO2 22 22 - 29 mmol/L 07/30/2019 5:08 PM EDT [facility] Anion Gap 15 7 - 16 mmol/L 07/30/2019 5:08 PM EDT [facility] Calcium 9.3 8.6 - 10.4 mg/dL 07/30/2019 5:08 PM EDT [facility] Glucose Lvl 122(H) 74 - 100 mg/dL 07/30/2019 5:08 PM EDT [facility] BUN 9 6 - 20 mg/dL 07/30/2019 5:08 PM EDT [facility] Creatinine 0.92 0.67 - 1.30 mg/dL 07/30/2019 5:08 PM EDT [facility] Albumin 4.5 3.5 - 5.2 gm/dL 07/30/2019 5:08 PM EDT [facility] Total Protein 6.6 6.4 - 8.3 gm/dL 07/30/2019 5:08 PM EDT [facility] Bili Total 0.4 0.1 - 1.4 mg/dL 07/30/2019 5:08 PM EDT [facility] ALT 15 <=41 IU/L 07/30/2019 5:08 PM EDT [facility] AST 25 <=40 IU/L 07/30/2019 5:08 PM EDT [facility] Alk Phos 100 40 - 129 IU/L 07/30/2019 5:08 PM EDT [facility] GFR Afr Am 111 >=60 mL/min/1.7 3 m2 07/30/2019 5:08 PM EDT [facility] GFR Non Afr Am 96 >=60 mL/min/1.7 3 m2 07/30/2019 5:08 PM EDT [facility] Comment: This estimated GFR was [...] muscle mass. Blood VENOUS BLOOD / Unknown 07/30/2019 1:02 PM EDT 07/30/2019 4:02 PM EDT Isaura Mckinney MD CHEMISTRY ORDERABLES Fin al Result [facility] [address] [facility], [place] [address] [facility] [address] [place], [place] [id number] * (ABNORMAL) SEDIMENTATION RATE AUTOMATED (07/30/2019 1:02 PM EDT) [facility] Signature Sed Rate 25(H) 0 - 20 mm/hr 07/30/2019 4:55 PM EDT [facility] Blood VENOUS BLOOD / Unknown 07/30/2019 1:02 PM EDT 07/30/2019 4:02 PM EDT Isaura Mckinney MD HEMATOLOGY ORDERABLES Fi nal Result [place] [id number] * (ABNORMAL) CBC WITH DIFF (07/30/2019 1:02 PM EDT) WBC 6.9 3.7 - 10.3 x10(3)/mcL 07/30/2019 4:25 PM EDT [facility] RBC 5.25 4.60 - 6.10 x10(6)/mcL 07/30/2019 4:25 PM EDT [facility] Hgb 15.1 13.7 - 17.5 g/dL 07/30/2019 4:25 PM EDT [facility] Hct 46.3 40.0 - 51.0 % 07/30/2019 4:25 PM EDT [facility] MCV 88.2 80.0 - 100.0 fL 07/30/2019 4:25 PM EDT [facility] MCH 28.8 26.0 - 34.0 pg 07/30/2019 4:25 PM EDT [facility] MCHC 32.6 30.7 - 35.5 g/dL 07/30/2019 4:25 PM EDT [facility] RDW 12.4 <=14.9 % 07/30/2019 4:25 PM EDT [facility] Platelet 315 155 - 369 x10(3)/mcL 07/30/2019 4:25 PM EDT [facility] MPV 9.9 8.8 - 12.5 fL 07/30/2019 4:25 PM EDT [facility] Neut Percent 74.1 % 07/30/2019 4:25 PM EDT [facility] Comment:Neutrophils equals s egs plus bands Imm Gran% 0.4 % 07/30/2019 4:25 PM EDT [facility] Comment:Automated count of m etamyelocytes, myelocytes and promyelocytes. Lymph Percent 14.0 % 07/30/2019 4:25 PM EDT [facility] [place] Percent 8.3 % 07/30/2019 4:25 PM EDT [facility] Eos Percent 2.6 % 07/30/2019 4:25 PM EDT [facility] Baso Percent 0.6 % 07/30/2019 4:25 PM EDT [facility] Neut # 5.1 1.6 - 6.1 x10(3)/[facility] 07/30/2019 4:25 PM EDT [facility] Comment:Neutrophils equals s egs plus bands IMMGRAN# 0.0 0.0 - 0.1 x10(3)/mcL 07/30/2019 4:25 PM EDT [facility] Comment:Automated count of m etamyelocytes, myelocytes and promyelocytes. An absolute IG <0.1 is reported as 0.0. Lymph # 1.0(L) 1.2 - 3.9 x10(3)/mcL 07/30/2019 4:25 PM EDT [facility] Florence # 0.6 0.3 - 0.9 x10(3)/mcL 07/30/2019 4:25 PM EDT [facility] Eos# 0.2 0.0 - 0.5 x10(3)/[facility] 07/30/2019 4:25 PM EDT [facility] Baso # 0.0 0.0 - 0.1 x10(3)/[facility] 07/30/2019 4:25 PM EDT [facility] [employer], [facility] Blood VENOUS BLOOD / Unknown 07/30/2019 1:02 PM EDT 07/30/2019 4:02 PM EDT us Isaura Mckinney MD HEMATOLOGY ORDERABLES Fi nal Result [facility] [address] [facility] , [place] [address] documented in this encounter Visit Diagnoses Diagnosis Disruption of external operation (surgical) wound, not elsewhere classified, initial encounter documented in this encounter Care Teams Embedded Case Manager Relationship Specialty Start Date End Date Vijaya Coker MD [address] [place] [phone] PCP - General Family Medicine 04/28/17 07/09/[address],LD Dietitian 08/25/20 08/26/20 Yesy Franco LPN [employer] Licensed Practical Nurse 11/25/20 08/23/[address],PARUL Dietitian 11/25/20 11/25/20 documented as of this encounter
--- OUTSIDE RECORDS SUMMARY | 2025-07-11 12:25 | XMS_ITS | Encounter Summary ---
Author Organization [place] [address] Care Team Providers Care Supervisor Tree Trimming Name Role Phone Vijaya Coker MD Primary Care Provider [phone] Reason for Visit * Reason Onset Date Comments Refill 05/19/2025 Wellbutrin Encounter Details Date Type Department Care Team (Late st Contact Info) Description 05/19/2025 Telephone [facility] [place] [address] [place] [phone] Vijaya Coker MD [address] [place] [phone] Refill (Wellbutrin) Social History Tobacco Use Types Packs/Day Years [...] Date Recorded PHQ-2 Total Score 0 06/18/2024 [facility] [place] [facility] - Occupational Stress [...] 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 Answer Entry Date Author No 06/18/2024 8:23 AM EDT Uzma Das LPN documented in this encounter Ordered Prescriptions Prescription Sig Dispense Quantity Refills Last Filled Start Date End Date buPROPion (WELLBUTRIN XL) 300 mg Oral Tablet Sustained Release 24 hrIndications:Major depressive disorder, recurrent episode, mild Take 1 Tablet by mouth every morning. 90 Tablet 05/19/2025 documented in this encounter Miscellaneous Notes * Telephone Encounter - Shoshana Jones MA - 05/19/2025 3:22 PM EDT Last appointment : Visit date not found Next appointment : 07/07/2025 Last Refill: a refill sent in, pt notified by . * Telephone Encounter - Jeniffer Kenny LPN - 05/19/2025 3:12 PM EDT Select the most appropriate reason for this telephone message: Medication Refill Who is requesting the refill: Patient Medication(s)Name/Dosage/Frequency: buPROPion (WELLBUTRIN XL) 300 mg Oral Tablet Sustained Release 24 hr 90 Tablet 1 11/18/2024 -- Sig - Route: Take 1 Tablet by mouth every morning. - Oral Did patient contact the pharmacy first: Yes How many days left on hand: 2 weeks Future appt date w/ prescribing provider: 07/07 Pharmacy & Location: [facility] Method of Communication: Phone Call Additional Information: He is about to lose his insurance at the end of this month and trying to refill medication before it ends. Rx pended documented in this encounter Plan of Treatment Upcoming Encounters Date Type Department Care Team (Late st Contact Info) Description 09/23/2026 10:00 AM EST Office Visit [facility] Sleep Medicine [facility] [address] [phone] [place] Kaylan Heaven, [employer]IT [employer]ER [address] [address] documented as of this encounter Goals Goal Patient Goal Type Associated Problems Recent Progress Patient-Stated? Author Blood Pressure < 140/90 Blood Pressure 120/80(2024 9:20 AM EST) No Vijaya Coker MD Maintain a healthy diet, exercise regularly and maintain an ideal body weight General No Marilu Nava CCMA Stay Tobacco Free Lifestyle No Marilu Nava CCMA documented as of this encounter Visit Diagnoses Diagnosis Major depressive disorder, recurrent episode, mild documented in this encounter Discontinued Medications Medication Sig Discontinue Reason Start Date End Da te buPROPion (WELLBUTRIN XL) 300 mg Oral Tablet Sustained Release 24 hrIndications:Major depressive disorder, recurrent episode, mild Take 1 Tablet by mouth every morning. Reorder 11/18/2024 05/19/2025 documented as of this encounter Care Teams Supervisor Tree Trimming Relationship Specialty Start Date End Date Vijaya Coker MD [address] [place] [phone] PCP - General Family Medicine 04/28/17 07/09/25 documented as of this encounter
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
--- OUTSIDE RECORDS SUMMARY | 2025-07-11 12:25 | XMS_ITS | Encounter Summary ---
Author Organization [place] [address] Care Team Providers Care [facility] Att[facility] Name Role Phone Vijaya Coker MD Primary Care Provider [phone],LD Unavailable Unavailabl e Yesy Franco LPN Unavailable Unav ailable Cassandra Grimes RD,LD Unavailable Unavailabl e Encounter Details Date Type Department Care Team (Late st Contact Info) Description 07/16/2019 Lab Requisition [facility] 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 file Not on file [...] AM EST Office Visit SEP Sleep Medicine [facility] [address] [phone] Kaylan Degroot APRN [address] [address] documented as of this encounter Goals Goal [...] Associated Diagnosis Comments SEDIMENTATION RATE AUTOMATED Routine 07/16/2019 11:30 AM EDT Disruption of external operation (surgical) wound, not elsewhere classified, initial encounter CBC WITH DIFF Routine 07/16/2019 11:30 AM EDT Disruption of external operation (surgical) wound, not elsewhere classified, initial encounter C-REACTIVE PROTEIN Routine 07/16/2019 11 :30 AM EDT Disruption of external operation (surgical) wound, not elsewhere classified, initial encounter COMPREHENSIVE METABOLIC PANEL Routine 07/16/2019 11:30 AM EDT Disruption of external operation (surgical) wound, not elsewhere classified, initial encounter documented in this encounter Results * (ABNORMAL) C-REACTIVE PROTEIN (07/16/2019 11:30 AM EDT) CRP 7.14(H) <=5.00 mg/L 07/16/2019 5:11 PM EDT [facility] Blood VENOUS BLOOD / Unknown 07/16/2019 11:30 AM EDT 07/16/2019 3:51 PM EDT us Isaura Mckinney MD CHEMISTRY ORDERABLES Fin al Result [facility] [address] [facility] , [place] [address] * (ABNORMAL) COMPREHENSIVE METABOLIC PANEL (07/16/2019 11:30 AM EDT) Sodium 144 136 - 145 mmol/L 07/16/2019 5:11 PM EDT [facility] Potassium 4.3 3.5 - 5.0 mmol/L 07/16/2019 5:11 PM EDT [facility] Chloride 106 98 - 107 mmol/L 07/16/2019 5:11 PM EDT [facility] Total CO2 26 22 - 29 mmol/L 07/16/2019 5:11 PM EDT [facility] Anion Gap 12 7 - 16 mmol/L 07/16/2019 5:11 PM EDT [facility] Calcium 9.1 8.6 - 10.4 mg/dL 07/16/2019 5:11 PM EDT [facility] Glucose Lvl 107(H) 74 - 100 mg/dL 07/16/2019 5:11 PM EDT [facility] BUN 13 6 - 20 mg/dL 07/16/2019 5:11 PM EDT [facility] Creatinine 1.01 0.67 - 1.30 mg/dL 07/16/2019 5:11 PM EDT [facility] Albumin 4.2 3.5 - 5.2 gm/dL 07/16/2019 5:11 PM EDT [facility] Total Protein 6.5 6.4 - 8.3 gm/dL 07/16/2019 5:11 PM EDT [facility] Bili Total 0.2 0.1 - 1.4 mg/dL 07/16/2019 5:11 PM EDT [facility] ALT 14 <=41 IU/L 07/16/2019 5:11 PM EDT [facility] AST 25 <=40 IU/L 07/16/2019 5:11 PM EDT [facility] Alk Phos 106 40 - 129 IU/L 07/16/2019 5:11 PM EDT [facility] GFR Afr Am 99 >=60 mL/min/1.7 3 m2 07/16/2019 5:11 PM EDT [facility] GFR Non Afr Am 86 >=60 mL/min/1.7 3 m2 07/16/2019 5:11 PM T [facility] Comment: This estimated GFR was [...] muscle mass. Blood VENOUS BLOOD / Unknown 07/16/2019 11:30 AM EDT 07/16/2019 3:51 PM EDT Isaura Mckinney MD CHEMISTRY ORDERABLES Fin al Result Performing Organization Address City/[facility]/ZIP Co de Phone Number [facility] [address] [facility], [place] [address] [facility] [address] [place] [phone] * (ABNORMAL) SEDIMENTATION RATE AUTOMATED (07/16/2019 11:30 AM EDT) Pathologist [facility] Sed Rate 26(H) 0 - 20 mm/hr 07/16/2019 5:00 PM EDT [facility] Blood VENOUS BLOOD / Unknown 07/16/2019 11:30 AM EDT 07/16/2019 3:51 PM EDT Isaura Mckinney MD HEMATOLOGY ORDERABLES Fi nal Result Performing Organization Address [facility] Co de Phone Number [facility] [address] [place] [address] * (ABNORMAL) CBC WITH DIFF (07/16/2019 11:30 AM EDT) [facility] WBC 6.6 3.7 - 10.3 x10(3)/mcL 07/16/2019 4:50 PM EDT [facility] RBC 5.04 4.60 - 6.10 x10(6)/mcL 07/16/2019 4:50 PM EDT [facility] Hgb 14.2 13.7 - 17.5 g/dL 07/16/2019 4:50 PM EDT [facility] Hct 44.3 40.0 - 51.0 % 07/16/2019 4:50 PM EDT [facility] MCV 87.9 80.0 - 100.0 fL 07/16/2019 4:50 PM EDT [facility] MCH 28.2 26.0 - 34.0 pg 07/16/2019 4:50 PM EDT [facility] MCHC 32.1 30.7 - 35.5 g/dL 07/16/2019 4:50 PM EDT [facility] RDW 12.3 <=14.9 % 07/16/2019 4:50 PM EDT [facility] Platelet 298 155 - 369 x10(3)/[facility] 07/16/2019 4:50 PM EDT [facility] MPV 10.4 8.8 - 12.5 fL 07/16/2019 4:50 PM EDT [facility] Neut Percent 70.5 % 07/16/2019 4:50 PM EDT [facility] Comment:Neutrophils equals s egs plus bands Imm Gran% 0.5 % 07/16/2019 4:50 PM EDT [facility] Comment:Automated count of m etamyelocytes, myelocytes and promyelocytes. Lymph Percent 15.4 % 07/16/2019 4:50 PM EDT [facility] [place] Percent 10.1 % 07/16/2019 4:50 PM EDT [facility] Eos Percent 2.7 % 07/16/2019 4:50 PM EDT [facility] Baso Percent 0.8 % 07/16/2019 4:50 PM EDT [facility] Neut # 4.7 1.6 - 6.1 x10(3)/[facility] 07/16/2019 4:50 PM EDT [facility] Comment:Neutrophils equals s egs plus bands IMMGRAN# 0.0 0.0 - 0.1 x10(3)/[facility] 07/16/2019 4:50 PM EDT [facility] Comment:Automated count of m etamyelocytes, myelocytes and promyelocytes. An absolute IG <0.1 is reported as 0.0. Lymph # 1.0(L) 1.2 - 3.9 x10(3)/[facility] 07/16/2019 4:50 PM EDT [facility] [place] # 0.7 0.3 - 0.9 x10(3)/[facility] 07/16/2019 4:50 PM EDT [facility] Eos# 0.2 0.0 - 0.5 x10(3)/[facility] 07/16/2019 4:50 PM EDT [facility] Baso # 0.1 0.0 - 0.1 x10(3)/[facility] 07/16/2019 4:50 PM EDT [facility] Blood VENOUS BLOOD / Unknown 07/16/2019 11:30 AM EDT 07/16/2019 3:51 PM EDT us Isaura Mckinney MD HEMATOLOGY ORDERABLES Fi nal Result [facility] [address] [facility], [place] [address] documented in this encounter Visit Diagnoses Diagnosis Disruption of external operation (surgical) wound, not elsewhere classified, initial encounter documented in this encounter Care Teams [facility] Attendant Relationship Specialty Start Date End Date Vijaya Coker MD [address] [place] [phone] PCP - General Family Medicine 04/28/17 07/09/[address],PARUL Dietitian 08/25/20 08/26/20 Yesy Franco LPN Supervisory Geographer Licensed Practical Nurse 11/25/20 08/23/[address],PARUL Dietitian 11/25/20 11/25/20 documented as of this encounter
--- OUTSIDE RECORDS SUMMARY | 2025-07-11 12:25 | XMS_ITS | Encounter Summary ---
Author Organization [facility] [place] Address [facility] [place] [address] Care Team Providers Care Assistance Specialist Name Role Phone Vijaya Coker MD Primary Care Provider [phone] Cassandra Grimes RDLD Unavailable Unavailabl e Yesy Franco LPN Unavailable Unav ailable Cassandra Grimes RD, LD Unavailable Unavailabl e Encounter Details Date Type Department Care Team (Late st Contact Info) Description 10/05/2018 Lab Requisition [facility] 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 Answer Date of Assessment Author No 08/28/2017 4:51 PM BENJAMIN HernandezKaylan dickerson [facility] * Is the person blind or does he/she have serious difficulty seeing even when wearing glasses? Answer Date of Assessment Author No 08/28/2017 4:51 PM BENJAMIN SandersKaylan gramajo [facility] * Does this person have serious difficulty walking or climbing stairs? Answer Date of Assessment Author No 08/28/2017 4:51 PM Kaylan Pedraza [facility] * Does this person have difficulty dressing or bathing? Answer Date of Assessment Author No 08/28/2017 4:51 PM BENJAMIN SandersKaylan gramajo [facility] * Because of a physical, mental or emotional condition, does this person have difficulty doing errands alone such as visiting a doctor's office or shopping? Answer Date of Assessment Author No 08/28/2017 4:51 PM Kaylan Pedraza [facility] documented as of this encounter Mental Status * Because of a physical, mental or emotional condition, does this person have serious difficulty concentrating, remembering or making decisions? Answer Entry Date Author No 08/28/2017 4:51 PM Kaylan Pedraza [facility] documented in this encounter Plan of Treatment Upcoming Encounters Date Type Department Care Team (Late st Contact Info) Description 09/23/2026 10:00 AM EST Office Visit SEP Sleep Medicine [facility] [address] [phone] Kaylan Degroot APRN [address] [address] documented as of this encounter Goals Goal [...] Procedure Name Priority Date/Time Associated Diagnosis Comments PATHOLOGY TISSUE REQUEST Routine 10/05/2018 12:00 PM EST Encounter for screening for malignant neoplasm of colon Benign neoplasm of transverse colon Benign neoplasm of ascending colon documented in this encounter Results * PATHOLOGY TISSUE REQUEST (10/05/2018 12:00 PM EST) CASE REPORT Surgical Pathology Case: [id number] Authorizing Provider: Cindi Henley MD Collected: 10/05/2018 1200 Pathologist: Jesus Trujillo MD Received: 10/06/2018 0812 Specimens: A) - Large Intestine, Transverse Colon B) - Large Intestine, Right/Ascending Colon 10/08/2018 10:00 AM EST [facility] CLINICAL HISTORY Screening, colorectal cancer. 10/08/2018 10:00 AM EST [facility] FINAL DIAGNOSIS A) Transverse Colon Polyps x 2: - Tubular Adenomas, Negative For High-Grade Dysplasia. B) Ascending Colon Polyp: - Tubular Adenoma, Negative For High-Grade Dysplasia. 10/08/2018 10:00 AM EST [facility] at 1000 EST GROSS DESCRIPTION Part A) The specimen is received in formalin labeled with the patient s name and t ransverse colon polyps x2 is a 1.2 x 0.9 x 0.7 cm pink-candelaria polypoid, friable tissue. The margin is inked black and serially sectioned. Additionally received are two fragments of pale-candelaria soft tissue ranging from 0.2 to 0.3 cm in greatest dimension. Submitted in toto in cassette A1. /ZN Part B) Received in formalin labeled with the patient s name and a scending colon polyp are three fragments of candelaria tissue ranging from 0.3 to 0.4 cm in greatest dimension. Entirely submitted in one cassette. /ZN 10/08/2018 10:00 AM EST [facility] MICROSCOPIC DESCRIPTION Microscopic examination is performed and the findings corroborate the diagnosis. 10/08/2018 10:00 AM EST [facility] EMBEDDED IMAGES 10/08/2018 10:00 AM EST [facility] Tissue ASCENDING COLON STRUCTURE / Unknown 10/05/2018 12:00 PM EST 10/06/2018 8:12 AM EST Tissue specimen (specimen) ASCENDING COLON STRUCTURE / Unknown 10/05/2018 12:00 PM EST 10/06/2018 8:12 AM EST us Cindi Henley MD PATHOLOGY ORDERABLES Final Re sult [facility] [address] [place] [address] [facility] 1 [place], [place] [phone] documented in this encounter Visit Diagnoses Diagnosis Encounter for screening for malignant neoplasm of colon Special screening for malignant neoplasms, colon Benign neoplasm of transverse colon Benign neoplasm of colon Benign neoplasm of ascending colon Benign neoplasm of colon documented in this encounter Care Teams Assistance Specialist Relationship Specialty Start Date End Date Vijaya Coker MD [address] [facility] [place] [phone] PCP - General Family Medicine 04/28/17 07/09/[address],PARUL Dietitian 08/25/20 08/26/20 Yesy Franco LPN Tape Keller Operator Licensed Practical Nurse 11/25/20 08/23/[address],PARUL Dietitian 11/25/20 11/25/20 documented as of this encounter
--- OUTSIDE RECORDS SUMMARY | 2025-07-11 12:25 | XMS_ITS | Encounter Summary ---
Author Organization [place] [address] Care Team Providers Care Sighter Name Role Phone Vijaya Coker MD Primary Care Provider Cassandra Grimes RD,LD Unavailable Unavailabl e Yesy Franco LPN Unavailable Unav ailable Cassandra Grimes RD,LD Unavailable Unavailabl e Encounter Details Date Type Department Care Team (Late st Contact Info) Description 08/06/2019 Lab Requisition [facility] One [facility] 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 on [...] AM EST Office Visit SEP Sleep Medicine [facility] [address] [phone] Kaylan Degroot APRN [address] [address] documented as of this encounter Goals Goal [...] Associated Diagnosis Comments SEDIMENTATION RATE AUTOMATED Routine 08/06/2019 11:00 AM EDT Disruption of external operation (surgical) wound, not elsewhere classified, initial encounter CBC WITH DIFF Routine 08/06/2019 11:00 AM EDT Disruption of external operation (surgical) wound, not elsewhere classified, initial encounter C-REACTIVE PROTEIN Routine 08/06/2019 11 :00 AM EDT Disruption of external operation (surgical) wound, not elsewhere classified, initial encounter BASIC METABOLIC PANEL Routine 08/06/2019 11:00 AM EDT Disruption of external operation (surgical) wound, not elsewhere classified, initial encounter documented in this encounter Results * C-REACTIVE PROTEIN (08/06/2019 11:00 AM EDT) CRP 3.25 <=5.00 mg/L 08/06/2019 7:56 PM EDT [facility] Blood VENOUS BLOOD / Unknown 08/06/2019 11:00 AM EDT 08/06/2019 6:38 PM EDT us Isaura Mckinney MD CHEMISTRY ORDERABLES Fin al Result [facility] [address] [facility] , [place] [address] * (ABNORMAL) BASIC METABOLIC PANEL (08/06/2019 11:00 AM EDT) Sodium 140 136 - 145 mmol/L 08/06/2019 7:56 PM EDT [facility] Potassium 4.1 3.5 - 5.0 mmol/L 08/06/2019 7:56 PM EDT [facility] Chloride 104 98 - 107 mmol/L 08/06/2019 7:56 PM EDT [facility] Total CO2 23 22 - 29 mmol/L 08/06/2019 7:56 PM EDT [facility] Anion Gap 13 7 - 16 mmol/L 08/06/2019 7:56 PM EDT [facility] Calcium 9.5 8.6 - 10.4 mg/dL 08/06/2019 7:56 PM EDT [facility] Glucose Lvl 115(H) 74 - 100 mg/dL 08/06/2019 7:56 PM EDT [facility] BUN 9 6 - 20 mg/dL 08/06/2019 7:56 PM EDT [facility] Creatinine 0.89 0.67 - 1.30 mg/dL 08/06/2019 7:56 PM EDT [facility] GFR Afr Am 114 >=60 mL/min/1.7 3 m2 08/06/2019 7:56 PM EDT [facility] GFR Non Afr Am 99 >=60 mL/min/1.7 3 m2 08/06/2019 7:56 PM EDT [facility] Comment: This estimated GFR [...] muscle mass. Blood VENOUS BLOOD / Unknown 08/06/2019 11:00 AM EDT 08/06/2019 6:38 PM EDT Isaura Mckinney MD CHEMISTRY ORDERABLES Fin al Result [facility] [address] [facility] , [place] [address] [facility] [address] [place] [phone] * (ABNORMAL) SEDIMENTATION RATE AUTOMATED (08/06/2019 11:00 AM EDT) Sed Rate 24(H) 0 - 20 mm/hr 08/06/2019 7:31 PM EDT [facility] Blood VENOUS BLOOD / Unknown 08/06/2019 11:00 AM EDT 08/06/2019 6:38 PM EDT us Isaura Mckinney MD HEMATOLOGY ORDERABLES Fi nal Result [facility] [address] [facility] , [place] [address] * (ABNORMAL) CBC WITH DIFF (08/06/2019 11:00 AM EDT) WBC 7.2 3.7 - 10.3 x10(3)/mcL 08/06/2019 7:14 PM EDT [facility] RBC 5.49 4.60 - 6.10 x10(6)/mcL 08/06/2019 7:14 PM EDT [facility] Hgb 15.7 13.7 - 17.5 g/dL 08/06/2019 7:14 PM EDT [facility] Hct 48.8 40.0 - 51.0 % 08/06/2019 7:14 PM EDT [facility] MCV 88.9 80.0 - 100.0 fL 08/06/2019 7:14 PM EDT [facility] MCH 28.6 26.0 - 34.0 pg 08/06/2019 7:14 PM EDT [facility] MCHC 32.2 30.7 - 35.5 g/dL 08/06/2019 7:14 PM EDT [facility] RDW 12.4 <=14.9 % 08/06/2019 7:14 PM EDT [facility] Platelet 319 155 - 369 x10(3)/mcL 08/06/2019 7:14 PM EDT [facility] MPV 9.7 8.8 - 12.5 fL 08/06/2019 7:14 PM EDT [facility] Neut Percent 76.8 % 08/06/2019 7:14 PM EDT [facility] Comment:Neutrophils equals s egs plus bands Imm Gran% 0.4 % 08/06/2019 7:14 PM EDT [facility] Comment:Automated count of m etamyelocytes, myelocytes and promyelocytes. Lymph Percent 11.0 % 08/06/2019 7:14 PM EDT [facility] [place] Percent 8.2 % 08/06/2019 7:14 PM EDT [facility] Eos Percent 2.9 % 08/06/2019 7:14 PM EDT [facility] Baso Percent 0.7 % 08/06/2019 7:14 PM EDT [facility] Neut # 5.5 1.6 - 6.1 x10(3)/mcL 08/06/2019 7:14 PM EDT [facility] Comment:Neutrophils equals s egs plus bands IMMGRAN# 0.0 0.0 - 0.1 x10(3)/mcL 08/06/2019 7:14 PM EDT [facility] Comment:Automated count of m etamyelocytes, myelocytes and promyelocytes. An absolute IG <0.1 is reported as 0.0. Lymph # 0.8(L) 1.2 - 3.9 x10(3)/mcL 08/06/2019 7:14 PM EDT [facility] [place] # 0.6 0.3 - 0.9 x10(3)/mcL 08/06/2019 7:14 PM EDT [facility] Eos# 0.2 0.0 - 0.5 x10(3)/mcL 08/06/2019 7:14 PM EDT [facility] Baso # 0.1 0.0 - 0.1 x10(3)/mcL 08/06/2019 7:14 PM EDT [facility] Blood VENOUS BLOOD / Unknown 08/06/2019 11:00 AM EDT 08/06/2019 6:38 PM EDT us Isaura Mckinney MD HEMATOLOGY ORDERABLES Fi nal Result [facility] [address] [facility] , [place] [address] documented in this encounter Visit Diagnoses Diagnosis Disruption of external operation (surgical) wound, not elsewhere classified, initial encounter documented in this encounter Care Teams Sighter Relationship Specialty Start Date End Date Vijaya Coker MD [address] [place] [phone] PCP - General Family Medicine 04/28/17 07/09/[address],PARUL Dietitian 08/25/20 08/26/20 Yesy Franco LPN Diet Supervisor Licensed Practical Nurse 11/25/20 08/23/[address], LD Dietitian 11/25/20 11/25/20 documented as of this encounter
== END 2025-07-10 23:59 ==
LOC: LAB.DROPOF 07-11 12:23
PROVIDERS: PCP Student in an Organized Health Care Education/Training Program; Visit Provider Student in an Organized Health Care Education/Training Program
DX: I10 Essential (primary) hypertension (principal)
CPT/HCPCS: 80053